=== PATIENT | female | born 1960 | race African-American/Black ===

== ENCOUNTER 2018-10-27 11:26 | Inpatient (IN) | payer OTHER ==
[2018-10-27 11:52] LABS: #Eosinphils 0.1 thou/uL (0.0-0.7); #Lymphocytes 1.9 thou/uL (1.20-3.40); #Monocytes 0.3 thou/uL (0.11-0.59); #Neutrophils 3.8 thou/uL (1.40-6.50); %Basophils 0.1 % (0.0-1.0); %Eosinophils 1.7 % (0.0-10.0); %Lymphocytes 31.4 % (21.0-51.0); %Monocytes 5.4 % (0.0-10.0); %Neutrophils 61.3 % (42.0-75.0); Hemoglobin 13.7 g/dL (12.0-16.0); Mean Corpuscular HGB CONC 31.7 g/dL (32.0-36.0); Mean Corpuscular Volume 88.4 fL (78.0-98.0); Mean Platelet Volume 8.4 fL (7.4-10.4); Platelet Count 187 thou/uL (130-400); RBC Distribution Width 12.2 % (11.5-14.5); White Blood Cell (WBC) Count 6.2 thou/uL (4.8-10.8)
[2018-10-27 11:58] LABS: Prothrombin Time 13.7 SEC (12.0-14.7)
--- NOTE | 2018-10-27 12:30 | RAD ---
PORTABLE CHEST: Date: 10/27/18 HISTORY: Mental status change. FINDINGS: Lung arechiga are clear. Heart and mediastinum appear normal. Vasculature normal. IMPRESSION: No acute abnormality. POS: [facility]
[2018-10-27 12:49] LABS: ALT (SGPT) 12 U/L (8-55); AST (SGOT) 14 U/L (5-34); Albumin 3.9 g/dL (3.5-5.0); Alkaline Phosphatase 64 U/L (40-150); Anion Gap 14 mmol/L (10-20); BUN (Urea Nitrogen) 14 mg/dL (9.8-20.1); Bilirubin, Total 0.7 mg/dL (0.2-1.2); CK (CPK) 148 U/L (29-168); Calc. Creatinine Clearance 0 mL/min (70-130); Calcium 9.6 mg/dL (7.8-10.44); Carbon Dioxide 27 mmol/L (22-29); Chloride 103 mmol/L (98-107); Estimated GFR-MDRD 70; Globulin 2.3 g/dL (2.4-3.5); Glucose 185 mg/dL (70-105); Potassium 4.5 mmol/L (3.5-5.1); Protein, Total 6.2 g/dL (6.0-8.3); Sodium 139 mmol/L (136-145)
[2018-10-27] MEDS ORDERED: Gadobenate Dimeglumine 529 MG/1 ML (20ML VIAL) ONE (13:10)
[2018-10-27 13:23] LABS: Bilirubin Negative (Negative); Blood, Urine Negative (Negative); Clarity CLEAR (Clear); Glucose, Urine (Dipstick) 100 mg/dL (Negative); Leukocyte Small (Negative); Nitrite Positive (Negative); Protein, Urine (Dipstick) Negative (Neg-Trace); Specific Gravity, Urine 1.021 (1.002-1.036); Urobilinogen 0.2 mg/dL (0.2-1.0)
[2018-10-27 13:25] LABS: Bacteria/HPF 4+ HPF (None Seen); Hyaline Casts/LPF 0-3 HYALINE CAST LPF (0-3 Hyaline); Pathc Cast-AUWi Flag 0.27 (0-2.49); RBC/HPF 0-3 HPF (0-3); Squamous Epithelial 0-3 HPF (0-3)
--- NOTE | 2018-10-27 14:07 | CT ---
CT HEAD WITHOUT CONTRAST: Date: 10/27/18 Multiple axial tomograms obtained through the head without IV enhancement. INDICATION: Difficulty speaking. There are no comparison studies. FINDINGS: Encephalomalacia in the right frontal lobe near the parasylvian region indicates an old cortical infa rct with mild encephalomalacia. There is abnormal cortical lucency in the left frontal lobe more superiorly, which suggests an old le ft frontal lobe infarct. Focal volume loss in the left occipital lobe also suggests an old focal left occipital cortical infar ct. There are chronic ischemic changes. No hemorrhage or mass effect. IMPRESSION: Chronic ischemic white matter changes and numerous areas of old cortical infarcts involving both cere bral hemispheres. Given the new neurologic finding of speech difficulty, recommend MRI of brain to as sess for restricted diffusion. Findings discussed with Dr. Enrique. CODE CR. POS: [facility]
[2018-10-27] MEDS ORDERED: Aspirin Chewable 81 MG TAB ONE (15:30)
--- NOTE | 2018-10-27 15:34 | PDOC.FPRHP ---
- History of Present Illness Chief Complaint: difficulty with speech History of Present Illness: 58 yo F with PMH HTN, DM2, HLD presents for apraxia that started 3 days ago and has not been improving. 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 She denies symptoms of headache, new visual/ hearing changes, fever, or dysphagia. Denies CP, palpitations, SOB or wheezing. In the ED, she had a CT positive for stroke. MRI showed Acute CVA in left front- parietal region anterior to central sulcus. - Allergies/Adverse Reactions Allergies Allergy/AdvReac Type Severity Reaction Status Date / Time No Known Allergies Allergy Verified 10/27/18 19:56 - History PMHx: DM, severe bilateral non proliferative diabetic retinopathy, HTN, HLD, knee OA, bilateral carpal tunnel PSHx: Hysterectomy, eye surgeries, lumpectomy FHx: Mother- cervical cancer Dad- doesn't know hx Social: No smoking, social alcohol use, no drug use allergies: NKDA - Review of Systems General: denies: fever/chills, weight/appetite/sleep changes Eyes: reports: vision changes (chronic). denies: eye pain ENT: denies: nasal congestion, rhinorrhea Respiratory: denies: cough, congestion, shortness of breath Cardiovascular: denies: chest pain, palpitation, paroxysmal nocturnal dyspnea, orthopnea Gastrointestinal: denies: nausea, vomiting, diarrhea, constipation, abdominal pain, GI bleeding Genitourinary: reports: polyuria. denies: dysuria Skin: denies: rashes, lesions Musculoskeletal: denies: pain, tenderness, arthritis/arthralgias Neurological: reports: other (see HPI). denies: numbness, syncope, seizure, weakness Psychological: denies: anxiety, depression - Vital signs BP: 116/97 HR: 94 RR: 16 Tmax: Pox: 98% on RA Wt: 89.8 kg - Physical Exam Constitutional: NAD, awake, alert and oriented, well developed HEENT: normocephalic and atraumatic, PERRLA, EOMI, conjunctiva clear, oropharynx clear, other (MM dry) Neck: supple, no LAD Heart: RRR, normal S1/S2, no murmurs/rubs/gallops Lungs: CTAB, no respiratory distress, good air movement, no rales/rhonchi, no wheezing Abdomen: soft, non-tender, bowel sounds present Musculoskeletal: normal structure, normal tone Neurological: CN II-XII intact, normal sensation, DTRs 2+ -Neurological: +dysarthria, no slurring of speech Skin: no rash/lesions, good turgor, capillary refill <2 seconds Heme/Lymphatic: no unusual bruising or bleeding Psychiatric: normal mood and affect, good judgment and insight, intact recent and remote memory FMR H&P: Results - Labs Result Diagrams: 10/27/18 11:38 10/27/18 11:38 Lab results: WBC 6.2 thou/uL (4.8-10.8) 10/27/18 11:38 Hgb 13.7 g/dL (12.0-16.0) 10/27/18 11:38 Hct 43.3 % (36.0-47.0) 10/27/18 11:38 MCV 88.4 fL (78.0-98.0) 10/27/18 11:38 Plt Count 187 thou/uL (130-400) 10/27/18 11:38 Neutrophils % 61.3 % (42.0-75.0) 10/27/18 11:38 Sodium 139 mmol/L (136-145) 10/27/18 11:38 Potassium 4.5 mmol/L (3.5-5.1) 10/27/18 11:38 Chloride 103 mmol/L (98-107) 10/27/18 11:38 Carbon Dioxide 27 mmol/L (22-29) 10/27/18 11:38 BUN 14 mg/dL (9.8-20.1) 10/27/18 11:38 Creatinine 0.99 mg/dL (0.6-1.1) 10/27/18 11:38 Glucose 185 mg/dL (70-105) H 10/27/18 11:38 Calcium 9.6 mg/dL (7.8-10.44) 10/27/18 11:38 Total Bilirubin 0.7 mg/dL (0.2-1.2) 10/27/18 11:38 AST 14 U/L (5-34) 10/27/18 11:38 ALT 12 U/L (8-55) 10/27/18 11:38 Alkaline Phosphatase 64 U/L (40-150) 10/27/18 11:38 Creatine Kinase 148 U/L (29-168) 10/27/18 11:38 Serum Total Protein 6.2 g/dL (6.0-8.3) 10/27/18 11:38 Albumin 3.9 g/dL (3.5-5.0) 10/27/18 11:38 Urine Ketones Negative mg/dL (Negative) 10/27/18 13:10 Urine Blood Negative (Negative) 10/27/18 13:10 Urine Nitrite Positive (Negative) H 10/27/18 13:10 Ur Leukocyte Esterase Small (Negative) H 10/27/18 13:10 Urine RBC 0-3 HPF (0-3) 10/27/18 13:10 Urine WBC 4-6 HPF (0-3) H 10/27/18 13:10 Ur Squamous Epith Cells 0-3 HPF (0-3) 10/27/18 13:10 Urine Bacteria 4+ HPF (None Seen) H 10/27/18 13:10 - EKG Interpretation EKG: NSR - Radiology Interpretation CT scan - head Status: image reviewed by me, report reviewed by me Additional comment: chronic ischemic white matter changes and numerous areas of old cortical infarcts involving both cerebral hemispheres MRI - head Status: image reviewed by me, report reviewed by me Additional comment: MRI Brain showed: Acute CVA left fronto-parietal region anterior to central sulcus; old CVA rt posterior frontal lobe and rt occipital lobe Chest x-ray Status: image reviewed by me, report reviewed by me Additional comment: no acute abnormality FMR H&P: A/P - Problem List (1) Acute CVA (cerebrovascular accident) Current Visit: Yes Status: Acute Code(s): I63.9 - CEREBRAL INFARCTION, UNSPECIFIED (2) Dysarthria Current Visit: Yes Status: Acute Code(s): R47.1 - DYSARTHRIA AND ANARTHRIA (3) DM2 (diabetes mellitus, type 2) Current Visit: Yes Status: Chronic (4) HTN (hypertension) Current Visit: Yes Status: Chronic Code(s): I10 - ESSENTIAL (PRIMARY) HYPERTENSION (5) HLD (hyperlipidemia) Current Visit: Yes Status: Chronic Code(s): E78.5 - HYPERLIPIDEMIA, UNSPECIFIED (6) Osteoarthritis, knee Current Visit: Yes Status: Chronic Code(s): M17.10 - UNILATERAL PRIMARY OSTEOARTHRITIS, UNSPECIFIED KNEE (7) Carpal tunnel syndrome on both sides Current Visit: Yes Status: Chronic Code(s): G56.03 - CARPAL TUNNEL SYNDROME , BILATERAL UPPER LIMBS - Plan Acute CVA - Dysarthria, sx started 3 days prior and have not improved; no other symptoms - EKG NSR - CT head showed multiple strokes - MRI Brain showed: Acute CVA left fronto-parietal region anterior to central sulcus; old CVA rt posterior frontal lobe and rt occipital lobe - Head/Neck CTA pending - Echo pending - TSH AM - FLP in AM - NPO until bedside swallow, then CC, HH - continue Statin and aspirin 325 - Neuro consult in AM Concern for UTI - U cx pending (clean catch), asymptomatic at this time - Received nitrofurantoin in ED - Hold Abx pending cx results DM2 - Continue home medications - Hypoglycemia protocol, SSI Diabetic retinopathy -Patient has poor vision, history of multiple eye surgeries HTN - Continue home lisinopril HLD - Continue statin Knee OA Bilateral Carpal Tunnel - Reports no symptoms currently Dispo: Admit to stroke inp Diet: HH, CC DVT ppx: lovenox Gi ppx: Tums PCP: Daina FMR H&P: Upper Level - Pertinent history 58 yr old female with PMH of DM, HTN, HLD who presents with speech difficulty with onset 3 days ago which has not improved. It came on with some confusion. Knows what she wants to say but can't get it out. Memory is intact. Speech not slurred. No weakness or numbness with this. Has not really improved since onset 3 days ago. Had episode of diarrhea yesterday, none today. - Pertinent findings Gen: NAD, well appearing, and appropriately dressed Heart: RRR, no M/R/G Lungs: CTAB, no wheezes, rhales, rhonchi Neuro: CN 2-12 intact, apraxia of speech, normal heel to schmidt, normal finger to nose. Brain MRI: new area of stroke in Left Frontoparietal region anterior to central sulcus, multiple right sided multivascular distribution of stroke which are old. left occipital area of stroke. 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 Pertinent changes/additions are listed here. 58 yr old female with PMH of DM, HTN, HLD with subacute CVA of left frontoparietal region anterior to central sulcus subacute CVA -findings on MRI c/w recent new stroke and consistent PE findings. -consult neurology -given CVA while on ASA, may consider dual antiplatelet therapy for the short term, appreciate neuro recs -check FLP, although she is on high-intensity statin already -Given her symptoms are 72 hours in duration, no further indication for permissive HTN DM -A1C 7.0 in 07/2019 -recheck in AM -continue metformin, glipizide -cont lisinopril HTN -cont home meds PCP: Claudia Lama MD Code Status: Full code DVT ppx: lovenox dispo: likely in 2 days, likely home Addendum - Attending - Attending Attestation Date/Time: 10/27/182109 I personally evaluated the patient and discussed the management with Dr. Mendoza and team. I agree with and repeated the History, Examination, Assessment and Plan documented above with any addition or exceptions noted below. Minimal dysarthria. Outside of window. No other symptoms. No word finding difficulty or aphasia. Likely change from ASA but await neuro input. Continue statin permissive htn. Risk factor management.
--- NOTE | 2018-10-27 15:43 | MRI ---
PRE AND POSTCONTRAST ENHANCED MRI OF THE BRAIN: Date: 10/27/18 COMPARISON: Previous CT brain from 10/27/18. HISTORY: 58-year-old female with history of CVA. TECHNIQUE: Multiplanar, multisequence pre and postcontrast enhanced MRI of brain obtained. FINDINGS: Images demonstrate old area of stroke in the right posterior frontal lobe, right mid temporal lobe, a nd right posterior temporal lobe. There is also old area of stroke in the left occipital region. There is an area of acute stroke with luxury perfusion and contrast enhancement of the rodriguez-white josué ction with T2 increased signal and diffusion restriction in the left frontoparietal region anterior t o the central sulcus. This is compatible with motor cortex area of acute stroke. IMPRESSION: 1. Multiple right-sided multivascular distribution areas of strokes, which are old. 2. Old left occipital area of stroke. 3. Left MCA distribution area of subacute stroke. POS: [facility]
[2018-10-27] MEDS: Nitrofurantoin Macrocrystal 50 MG CAP PO SCH ×2 (18:26→18:27)
[2018-10-27] MEDS ORDERED: Calcium Carbonate 500 MG ChewTAB PO PRN (18:39)
[2018-10-27] MEDS ORDERED: HumaLOG 300 UNITS/3 ML VIAL SC PRN (19:19)
[2018-10-27] MEDS ORDERED: Dextrose 50% Abboject 50 ML SYRINGE SLOW IVP PRN (19:19)
[2018-10-27] MEDS ORDERED: Dextrose 5% in Water 1,000 ML IV PRN (19:19)
[2018-10-27] MEDS ORDERED: Enoxaparin Sodium 40 MG/0.4 ML SYRINGE SC SCH (19:30)
[2018-10-27 19:49] VITALS: BMI 31.4
[2018-10-27] MEDS ORDERED: SYSTANE GEL EYE DROP 10 ML 10 GM BOT EA EYE PRN (20:45)
[2018-10-27] MEDS: Atorvastatin Calcium 40 MG TAB PO SCH (21:55)
--- NOTE | 2018-10-28 05:38 | PDOC.FM ---
- Subjective Subjective: Pt has no pain this AM. States her ability to talk has not improved. Answered all questions. - Objective Vital Signs & Weight: Vital Signs (12 hours) Temp Pulse Resp BP Pulse Ox 10/28/18 04:00 97.4 F L 75 16 132/62 99 10/28/18 00:00 98.0 F 87 16 119/65 98 10/27/18 20:15 97 10/27/18 20:00 98.0 F 86 16 134/62 97 10/27/18 17:57 99.1 F 88 18 132/83 99 Weight Weight 88.496 kg Result Diagrams: 10/27/18 11:38 10/27/18 11:38 Phys Exam - Physical Examination Constitutional: NAD HEENT: PERRLA, moist MMs Respiratory: no wheezing, clear to auscultation bilateral Cardiovascular: RRR, no significant murmur Gastrointestinal: soft, non-tender, no distention, positive bowel sounds Musculoskeletal: no edema, pulses present Neurological: non-focal, moves all 4 limbs apraxia Psychiatric: normal affect Skin: normal turgor, cap refill <2 seconds Dx/Plan (1) Acute CVA (cerebrovascular accident) Code(s): I63.9 - CEREBRAL INFARCTION, UNSPECIFIED Status: Acute (2) Dysarthria Code(s): R47.1 - DYSARTHRIA AND ANARTHRIA Status: Acute (3) DM2 (diabetes mellitus, type 2) Status: Chronic (4) HTN (hypertension) Code(s): I10 - ESSENTIAL (PRIMARY) HYPERTENSION Status: Chronic (5) HLD (hyperlipidemia) Code(s): E78.5 - HYPERLIPIDEMIA, UNSPECIFIED Status: Chronic (6) Osteoarthritis, knee Code(s): M17.10 - UNILATERAL PRIMARY OSTEOARTHRITIS, UNSPECIFIED KNEE Status: Chronic (7) Carpal tunnel syndrome on both sides Code(s): G56.03 - CARPAL TUNNEL SYNDROME, BILATERAL UPPER LIMBS Status: Chronic - Plan Plan: Acute CVA - Dysarthria, sx started 3 days prior and have not improved; no other symptoms - EKG NSR - CT head showed multiple strokes - MRI Brain showed: Acute CVA left fronto-parietal region anterior to central sulcus; old CVA rt posterior frontal lobe and rt occipital lobe - Head/Neck CTA pending - Echo pending - TSH -pending - FLP-pending - NPO until bedside swallow, then CC, HH - continue Statin and aspirin 325 - Neuro consult this AM Concern for [place] prolongation - Not seen on prior EKG, repeat EKG this AM Concern for UTI - U cx pending (clean catch), asymptomatic at this time - Received nitrofurantoin in ED - Hold Abx pending cx results DM2 - Continue home medications - Hypoglycemia protocol, SSI Diabetic retinopathy -Patient has poor vision, history of multiple eye surgeries HTN - Continue home lisinopril HLD - Continue statin Knee OA Bilateral Carpal Tunnel - Reports no symptoms currently Dispo: LOS >2 midnights Diet: HH, CC DVT ppx: lovenox Gi ppx: Tums PCP: Daina Addendum - Attending - Attending Attestation Date/Time: 10/28/18 [id number] I personally evaluated the patient and discussed the management with Dr. Mendoza. I agree with the History, Examination, Assessment and Plan documented above with any addition or exceptions noted below. Patient here for subacute CVA in the L MCA distribution. Continue BP mgmt and chronic disease mgmt. Add Plavix to ASA and consult Neurology. 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 Work to get risk factors under control and dispo pending therapy results.
[2018-10-28 06:24] LABS: Cardiac Risk 2.9 (Less than 4.5)
[2018-10-28] MEDS ORDERED: Iopamidol 370 76% 100 ML VIAL ONE (08:01)
[2018-10-28] MEDS ORDERED: Lisinopril 20 MG TAB PO SCH (09:00)
[2018-10-28] MEDS ORDERED: Non-Formulary Item 1 EACH (Lisinopril [Lisinopril] 1 TAB) PO SCH (09:00)
[2018-10-28] MEDS ORDERED: Aspirin 325 mg Enteric Coated Tablet PO SCH (09:00)
[2018-10-28] MEDS: Enoxaparin Sodium 40 MG/0.4 ML SYRINGE SC SCH (09:15)
[2018-10-28] MEDS: metFORMIN XR 500 MG TAB PO SCH ×2 (09:16→17:15)
[2018-10-28] MEDS: Fluticasone Propionate Nasal Spray 16 gm Bottle NASAL SCH (09:16)
--- NOTE | 2018-10-28 09:37 | CT ---
CTA HEAD WITH AND WITHOUT CONTRAST: CTA NECK WITH AND WITHOUT CONTRAST: INDICATIONS: CVA. COMPARISON: Yesterday's CT head without contrast. MRI reveals subacute infarct in the left parietal lobe. Other old cortical infarcts are described on MRI brain. TECHNIQUE: Multiple axial tomograms were obtained through the head without IV enhancement. This was followed by CT angio head with IV contrast, following angio protocol, with multiplanar reconstruction and 3D pos t processing. Multiple axial tomograms were obtained through the neck, following angio protocol, with multiplanar r econstruction and 3D post processing. FINDINGS: CTA HEAD: Cortical edema in the left parietal lobe, which is consistent with the area of acute/subac mi'kmaq infarct seen on MRI. There are other areas of cortical lucency, consistent with old cortical inf arcts, which are better delineated on MRI exam. No hemorrhage. No significant mass effect. No inte rval change from yesterday's noncontrast CT. CT angio head shows the intracranial internal carotid arteries are patent and symmetric. The anterio r cerebral arteries and the middle cerebral arteries are patent and symmetric. The M1 branches are p atent with no evidence of stenosis or occlusion. The proximal M2 branches on the left appear patent. There appears to be some decrease in the opercular and M3 branches on the left, which may correspon d to a left parietal lobe infarct; however, no major vessel occlusion is apparent. The basilar artery is patent. The posterior cerebral arteries appear patent and symmetric. CTA NECK: No evidence of stenosis or atherosclerotic change seen at the origin of the arch vessels. Both common carotids are unremarkable. Bilateral carotid bulbs and bilateral extracranial internal carotid arteries are patent and symmetric. No stenosis. The vertebral arteries are patent and symmetric. The soft tissues are unremarkable. IMPRESSION: 1. No proximal cerebral artery stenosis or occlusion identified. 2. Unremarkable CTA neck. No evidence of carotid stenosis. POS: [facility]
[2018-10-28] MEDS: Clopidogrel Bisulfate 75 MG TAB PO SCH (10:14)
[2018-10-28] MEDS: Lisinopril 20 MG TAB PO SCH (10:14)
[2018-10-28 12:47] LABS: Hemoglobin A1c 6.9 % (4.0-6.0)
[2018-10-28] MEDS: Atorvastatin Calcium 40 MG TAB PO SCH (20:58)
[2018-10-29 05:48] LABS: PTT 25.2 SEC (22.9-36.1)
[2018-10-29 05:49] LABS: Prothrombin Time 13.7 SEC (12.0-14.7)
[2018-10-29 05:56] LABS: D-Dimer Test Less than 0.27 *mcg/mL (0.27-0.43)
--- NOTE | 2018-10-29 06:12 | PDOC.FM ---
- Subjective Subjective: Patient reports she is doing well. Saw speech therapy, has some exercises to do at home. - Objective Vital Signs & Weight: Vital Signs (12 hours) Temp Pulse Resp BP Pulse Ox 10/29/18 03:55 97.7 F 76 18 122/59 L 100 10/29/18 00:00 98.0 F 86 18 140/67 98 10/28/18 20:00 98.0 F 89 18 132/69 97 Weight Weight 88.496 kg I&O: 10/27/18 10/28/18 10/29/18 06:59 06:59 06:59 Intake Total 1680 Balance 1680 Result Diagrams: 10/27/18 11:38 10/27/18 11:38 Phys Exam - Physical Examination Constitutional: NAD Respiratory: no wheezing, clear to auscultation bilateral Cardiovascular: RRR, no significant murmur Gastrointestinal: soft, non-tender, no distention, positive bowel sounds Musculoskeletal: no edema, pulses present Neurological: non-focal, normal sensation, moves all 4 limbs Pauses before speaking some words, stutters on occasion Psychiatric: normal affect, A&O x 3 Skin: no rash, normal turgor, cap refill <2 seconds Dx/Plan (1) Acute CVA (cerebrovascular accident) Code(s): I63.9 - CEREBRAL INFARCTION, UNSPECIFIED Status: Acute (2) Dysarthria Code(s): R47.1 - DYSARTHRIA AND ANARTHRIA Status: Acute (3) DM2 (diabetes mellitus, type 2) Status: Chronic (4) HTN (hypertension) Code(s): I10 - ESSENTIAL (PRIMARY) HYPERTENSION Status: Chronic (5) HLD (hyperlipidemia) Code(s): E78.5 - HYPERLIPIDEMIA, UNSPECIFIED Status: Chronic (6) Osteoarthritis, knee Code(s): M17.10 - UNILATERAL PRIMARY OSTEOARTHRITIS, UNSPECIFIED KNEE Status: Chronic (7) Carpal tunnel syndrome on both sides Code(s): G56.03 - CARPAL TUNNEL SYNDROME, BILATERAL UPPER LIMBS Status: Chronic - Plan Plan: Acute CVA - Aphasia, sx started 3 days prior to admission and have not improved; no other symptoms - EKG NSR - CT head showed multiple strokes - MRI Brain showed: Acute CVA left fronto-parietal region anterior to central sulcus; old CVA rt posterior frontal lobe and rt occipital lobe - Head/Neck CTA negative - Echo pending - TSH -normal - FLP on statin shows ASCVD 7.1%, continue high intensity statin - continue Statin and aspirin 81 mg and plavix - Neuro consulted, Dr. Riley, 10/28. Recommendations appreciated Concern for [place] prolongation - Not seen on prior EKG, repeat EKG showed no prolonged QT Concern for UTI - U cx pending (clean catch), asymptomatic at this time - Received nitrofurantoin in ED - Cx <100,000 DM2 - Continue home medications - Hypoglycemia protocol, SSI - A1C 6.9 Diabetic retinopathy -Patient has poor vision, history of multiple eye surgeries HTN - Continue home lisinopril HLD - Continue statin Knee OA Bilateral Carpal Tunnel - Reports no symptoms currently Dispo: LOS >2 midnights Diet: HH, CC DVT ppx: lovenox Gi ppx: Tums PCP: Daina Addendum - Attending - Attending Attestation Date/Time: 10/29/18 1113 I personally evaluated the patient and discussed the management with Dr. Mendoza. I agree with the History, Examination, Assessment and Plan documented above with any addition or exceptions noted below. Patient doing well today. Continues to have some issues with word finding associated with her subacute CVA, but improved. She will continue on ASA and Plavix therapy. No need for intense therapy per PT, and so once Neurology has evaluated patient, likely discharge home later today.
[2018-10-29] MEDS: metFORMIN XR 500 MG TAB PO SCH ×2 (09:01→11:20)
[2018-10-29] MEDS: Enoxaparin Sodium 40 MG/0.4 ML SYRINGE SC SCH (09:04)
[2018-10-29] MEDS: Lisinopril 20 MG TAB PO SCH (09:04)
[2018-10-29] MEDS: Aspirin 81 mg Enteric Coated Tablet PO SCH (09:05)
[2018-10-29] MEDS: Fluticasone Propionate Nasal Spray 16 gm Bottle NASAL SCH (09:05)
[2018-10-29] MEDS: Clopidogrel Bisulfate 75 MG TAB PO SCH (09:05)
--- NOTE | 2018-10-29 09:33 | EKG ---
Test Reason : Blood Pressure : / mmHG Vent. Rate : 089 BPM Atrial Rate : 089 BPM P-R Int : 176 ms QRS Dur : 088 ms QT Int : 362 ms P-R-T Axes : 070 -03 032 degrees QTc Int : 440 ms Normal sinus rhythm Normal ECG When compared with ECG of 27-OCT-2018 11:58, (Unconfirmed) No significant change was found Confirmed by DR. Chito CARTER ([id number]) on 10/29/2018 9:32:59 AM Referred By: PUSHPA CROOK *r Confirmed By:DR. Chito CARTER
[2018-10-29] MEDS: Atorvastatin Calcium 40 MG TAB PO SCH (20:05)
[2018-10-29] MEDS ORDERED: Polyethylene Glycol 3350 17 GM Packet PO SCH (21:15)
--- NOTE | 2018-10-29 22:18 | CON ---
DATE OF CONSULTATION: 10/29/2018 CONSULTING PHYSICIAN: Hospitalist Services. IMPRESSION: 1. Acute left middle cerebral artery stroke. 2. Old left occipital stroke. 3. Old right deep parietal infarcts. 4. Diabetes. 5. Aspirin failure. PLAN: 1. Add Plavix. 2. Review hypercoagulation panel when available. 3. Echocardiogram. HISTORY OF PRESENT ILLNESS: Ms. Olson is a 58-year-old black female with known history of diabetes. She presented with acute onset of some right-sided weakness and language difficulty. Her symptoms have improved a bit since admission. Her scan was reviewed and showed what is documented above. Her CT angiogram did not show any extracranial or intracranial large vessel stenosis. She has seen some steady improvement in her speech. She was previously taking aspirin and a statin. PAST MEDICAL HISTORY: Diabetes, hyperlipidemia, silent stroke. ALLERGIES: NONE. SOCIAL HISTORY: No tobacco or alcohol use. FAMILY HISTORY: Noncontributory. MEDICATIONS: Medication list was reviewed. REVIEW OF SYSTEMS: A 10-system review of systems is otherwise only notable for blurred vision. PHYSICAL EXAMINATION: GENERAL: She is a healthy-appearing middle-aged woman, in no acute distress. VITAL SIGNS: Blood pressure 125/60, pulse 85, respirations 16, temperature 98.7. HEENT: Pupils are equal. Conjunctivae are clear. Oropharynx is clear. NECK: Supple, no lymphadenopathy. EXTREMITIES: No cyanosis, clubbing, or edema. NEUROLOGIC: She is alert and appropriate. Her speech is clear with some difficulty with word finding sporadically during the conversation. Cranial nerves are intact. Motor exam shows a fix on arm roll testing on the right side. Fine motor control is mildly impaired on the right. No tremor or dysmetria is present. She can walk independently. No abnormal movements are seen. LABORATORY DATA: EKG shows a normal sinus rhythm. SUMMARY: This is a middle-aged woman with acute stroke despite aspirin and statin. I would go ahead and advance her to Plavix unless her coagulation panel shows evidence of a coagulopathy that might require anticoagulation. I would be happy to follow up with her in the office. Job ID: [id number]
--- NOTE | 2018-10-30 06:43 | PDOC.FM ---
- Subjective Subjective: Patient feels well this AM. Saw neurology yesterday. COLIN. - Objective Vital Signs & Weight: Vital Signs (12 hours) Temp Pulse Resp BP Pulse Ox 10/30/18 04:00 98.9 F 74 16 121/59 L 98 10/30/18 00:00 97.8 F 81 16 137/63 99 10/29/18 20:00 99 10/29/18 19:49 99.3 F 83 16 120/64 98 Weight Weight 88.496 kg I&O: 10/28/18 10/29/18 10/30/18 06:59 06:59 06:59 Intake Total 1680 Balance 1680 Result Diagrams: 10/27/18 11:38 10/27/18 11:38 Phys Exam - Physical Examination Constitutional: NAD HEENT: PERRLA, moist MMs Neck: no nodes, supple Respiratory: no wheezing, clear to auscultation bilateral Cardiovascular: RRR, no significant murmur Gastrointestinal: soft, non-tender, no distention, positive bowel sounds Musculoskeletal: no edema, pulses present Neurological: normal sensation, moves all 4 limbs expressive Aphasia Psychiatric: normal affect, A&O x 3 Skin: normal turgor, cap refill <2 seconds Dx/Plan (1) Acute CVA (cerebrovascular accident) Code(s): I63.9 - CEREBRAL INFARCTION, UNSPECIFIED Status: Acute (2) Dysarthria Code(s): R47.1 - DYSARTHRIA AND ANARTHRIA Status: Acute (3) DM2 (diabetes mellitus, type 2) Status: Chronic (4) HTN (hypertension) Code(s): I10 - ESSENTIAL (PRIMARY) HYPERTENSION Status: Chronic (5) HLD (hyperlipidemia) Code(s): E78.5 - HYPERLIPIDEMIA, UNSPECIFIED Status: Chronic (6) Osteoarthritis, knee Code(s): M17.10 - UNILATERAL PRIMARY OSTEOARTHRITIS, UNSPECIFIED KNEE Status: Chronic (7) Carpal tunnel syndrome on both sides Code(s): G56.03 - CARPAL TUNNEL SYNDROME, BILATERAL UPPER LIMBS Status: Chronic - Plan Plan: Acute CVA - Aphasia, sx started 3 days prior to admission and have not improved; no other symptoms - EKG NSR - CT head showed multiple strokes - MRI Brain showed: Acute CVA left fronto-parietal region anterior to central sulcus; old CVA rt posterior frontal lobe and rt occipital lobe - Head/Neck CTA negative - Echo: EF 60-65%, trace mitral regurgitation, mild tricuspid regurgitation, no PFO or ASD, no intracardiac thrombi or masses, structurally normal aortic valve. - TSH -normal - FLP on statin shows ASCVD 7.1%, continue high intensity statin - continue Statin and aspirin 81 mg and plavix - Neuro consulted, Dr. Riley, 10/28. Recommendations appreciated -Start plavix if normal coag panel Concern for WI prolongation - Not seen on prior EKG, repeat EKG showed no prolonged QT Concern for UTI - U cx pending (clean catch), asymptomatic at this time - Received nitrofurantoin in ED - Cx <100,000 DM2 - Continue home medications - Hypoglycemia protocol, SSI - A1C 6.9 Diabetic retinopathy -Patient has poor vision, history of multiple eye surgeries HTN - Continue home lisinopril HLD - Continue statin Knee OA Bilateral Carpal Tunnel - Reports no symptoms currently Dispo: Discharge today Diet: HH, CC DVT ppx: lovenox Gi ppx: Tums PCP: Daina Addendum - Attending - Attending Attestation Date/Time: 10/30/18 0901 I personally evaluated the patient and discussed the management with Dr. Mendoza. I agree with the History, Examination, Assessment and Plan documented above with any addition or exceptions noted below. Patient doing well this AM and able to speak more clearly. Neurology has evaluated and she is stable for discharge this morning with follow up outpatient with PCP and Neurology. Continue ASA, Statin, and Plavix.
[2018-10-30 07:30] VITALS: BP 133/61; TEMP 98.1
[2018-10-30] MEDS: metFORMIN XR 500 MG TAB PO SCH (08:51)
[2018-10-30] MEDS: Lisinopril 20 MG TAB PO SCH (08:52)
[2018-10-30] MEDS: Aspirin 81 mg Enteric Coated Tablet PO SCH (08:52)
[2018-10-30] MEDS: Clopidogrel Bisulfate 75 MG TAB PO SCH (08:52)
[2018-10-30] MEDS: Fluticasone Propionate Nasal Spray 16 gm Bottle NASAL SCH (08:54)
[2018-10-30] MEDS: Enoxaparin Sodium 40 MG/0.4 ML SYRINGE SC SCH (08:54)
[2018-10-30] MEDS ORDERED: Polyethylene Glycol 3350 17 GM Packet PO SCH (09:00)
[2018-10-30 17:02] LABS: HEX PHOS LA Tube 2 50.2 SEC; Hexagonal Phospholipid Neut 2.8 SEC (0-8.0); Protein C Activity 154 % (78-152)
[2018-10-30 17:03] LABS: Factor VIII Test 256.3 % ACTIVE (56-157)
[2018-10-30 17:06] LABS: Cardiolipin IgG Ab 0.6 GPL-U/mL (<10 Negative); Cardiolipin IgM Ab Less than 0.8 MPL-U/mL (<10 Negative); EliA APS New Method **** NEW METHOD ****
--- NOTE | 2018-10-31 07:20 | DIS ---
DATE OF ADMISSION: 10/27/2018 DATE OF DISCHARGE: 10/30/2018 RESIDENT: Sandra Mendoza MD ADMITTING ATTENDING: Arnaldo Neri MD. DISCHARGE ATTENDING: Arnaldo Neri MD. CONSULTS: Neurology, Dr. Riley, 10/28/2018. PROCEDURES: 1. Chest x-ray, 10/27/2018, no acute abnormality. 2. Brain CT, 10/27/2018, chronic ischemic white matter changes. Numerous areas of old cortical infarcts involving both cerebral hemispheres. 3. Brain MRI, 10/27/2018, multiple right-sided multi vascular distribution areas of strokes, which are old. 4. Old left occipital area stroke. 5. Left MCA distribution area of subacute stroke. 6. CT angiography, 10/28/2018, head and neck. No proximal cerebral artery stenosis or occlusion identified. Unremarkable CTA neck. No evidence of carotid stenosis. 7. Echocardiogram, 10/29/2018, no evidence of PFO or ASD. No intracardiac thrombi or masses noted. EF visually estimated at 60% to 65%. Normal right ventricular size and function. Left atrium is of normal size. Normal right atrial size. Trace mitral regurgitation is present. Structurally normal aortic valve. Mild tricuspid regurgitation. ADMIT DIAGNOSES: 1. Acute cerebrovascular accident with resulting aphasia. 2. Diabetes mellitus type 2. 3. Diabetic retinopathy. 4. Hypertension. 5. Hyperlipidemia. 6. Knee osteoarthritis. 7. Bilateral carpal tunnel syndrome. DISCHARGE MEDICATIONS: 1. Clopidogrel 75 mg p.o. daily. 2. Metformin 1000 mg p.o. b.i.d. 3. Glipizide 1 tab p.o. daily. 4. Fluticasone 1 spray nasal daily. 5. Lisinopril 40 mg p.o. daily. 6. Aspirin 81 mg daily. 7. Atorvastatin 80 mg p.o. at bedtime. 8. 2 drops each eye p.r.n. for dry eyes. DISCONTINUED MEDICATIONS: None. HISTORY OF PRESENT ILLNESS AND HOSPITAL COURSE: A 58-year-old female with past medical history of hypertension, type 2 diabetes mellitus, hyperlipidemia, presents for aphasia that started 3 days ago and has not been improving. 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 She states she knows that she wants to say, but has difficulty saying it. She denies symptoms of headache, visual or hearing changes, fever, dysphagia. Denies chest pain, palpitations, shortness of breath, or wheezing. In the ED, she had a CT that is positive for stroke. MRI showed acute CVA in the left frontoparietal region anterior to the central sulcus. This correlates with the Broca's aphasia. Head and neck CT was negative. Echo showed no thrombus or vegetation. TSH was normal. The patient was continued on aspirin and statin and started Plavix. Neuro was consulted. The patient was evaluated by speech and will follow up with outpatient occupational therapy. The patient had a positive UA that was asymptomatic. She received nitrofurantoin in the ED. Culture grew less than 100,000 organism and antibiotics were not continued. The patient's chronic medical conditions were treated with home medications. DISPOSITION: Stable. DISCHARGE INSTRUCTIONS: 1. Location: Home. 2. Diet: Heart healthy, diabetic diet, low-sodium diet. 3. Activity: As tolerated. 4. The patient will return to work on Sunday. She is given a note for her place of work. 5. Followup: Follow up with Dr. Claudia Lama within 7 days. The patient will also follow up with Dr. Riley as an outpatient as needed. Job ID: [id number]
== END 2018-10-30 11:42 | disposition home or self-care (01) | DRG 65 ==
LOC: ERS 11:26 → OBSVTOIN 16:35 → 2SE 16:35
PROVIDERS: ADMIT Student in an Organized Health Care Education/Training Program; ATTEND Student in an Organized Health Care Education/Training Program
DX: I63.9 Cerebral infarction, unspecified (principal); G81.91 Hemiplegia, unspecified affecting right dominant side; I63.512 Cerebral infarction due to unspecified occlusion or stenosis of left middle cerebral artery; R47.01 Aphasia; R47.1 Dysarthria and anarthria; I10 Essential (primary) hypertension; E11.319 Type 2 diabetes mellitus with unspecified diabetic retinopathy without macular edema; M17.10 Unilateral primary osteoarthritis, unspecified knee; Z90.710 Acquired absence of both cervix and uterus; G56.03 Carpal tunnel syndrome, bilateral upper limbs; Z79.82 Long term (current) use of aspirin; Z79.84 Long term (current) use of oral hypoglycemic drugs; Z79.51 Long term (current) use of inhaled steroids; E78.00 Pure hypercholesterolemia, unspecified
CPT/HCPCS: 36415; 36416; 70450; 70496; 70498; 70553; 71045; 80053; 80061; 81003; 81015; 81240; 81241; 82550; 83036; 83090; 84443; 84484; 85025; 85240; 85300; 85303; 85305; 85307; 85379; 85598; 85610; 85730; 86147; 87077; 87086; 87186; 93005; 93010; 93306; 94760; A9577; J1650; Q9967

== ENCOUNTER 2019-07-18 14:09 | Outpatient (CLI) | payer OTHER ==
--- NOTE | 2019-07-18 15:38 | ULT ---
FOCUSED ULTRASOUND OF THE LEFT BREAST AND LEFT AXILLA: 07/18/19 HISTORY: Palpable mass in the medial left breast. TECHNIQUE: Multiplanar rodriguez scale sonographic imaging of the area of palpable concern obtained. The left axilla was assessed as well. In the area of palpable concern within the medial left breast at the 10 o'clock position, approximate ly 7 cm from the nipple there is an irregular heterogeneous hypoechoic mass measuring up to approxima tely 4.5 x 2.7 x 2.0 cm. It demonstrates shadowing and is highly suggestive of malignancy. Focused ul trasound of the left axilla does demonstrate an enlarged left axillary lymph node with cortical thick ening which measures approximately 5 mm. This lymph node measures at least 1.1 cm transverse dimensio n and 3.2 cm craniocaudal dimension. IMPRESSION: BIRADS 5: Highly Suggestive of Malignancy - Appropriate Action Should Be Taken Requires biopsy or surgical treatment. Mildly enlarged left axillary lymph node may be metastatic in nature. Recommend further evaluation with ultrasound guided biopsy of the left breast mass and biopsy/fine n eedle aspiration of left axillary node. The patient was made aware of these findings and recommendation for biopsy in person by Dr. Steen at 3:15 p.m., 07/18/19. Dr. Dempsey made aware via phone on the afternoon of 07/18/2019 as well. Code T POS: LILIAN
--- NOTE | 2019-07-18 16:28 | MMO ---
Bilateral MAMMO Bilat Diag [facility]+ILENE. CLINICAL HISTORY: Patient is 59 years old and is seen for diagnostic exam. The patient has no family history of breast cancer. The patient has no personal history of cancer. The patient has a history of right Excisional Biopsy in 1990 - benign. VIEWS: The views performed were: bilateral craniocaudal with tomosynthesis; bilateral mediolateral oblique with tomosynthesis; and bilateral mediolateral with tomosynthesis. FILMS COMPARED: The present examination has been compared to prior imaging studies performed at [facility] on 07/18/2019, and at [facility] on 02/24/2013, 04/27/2014 and 03/11/2015. This study has been interpreted with the assistance of computer-aided detection. MAMMOGRAM FINDINGS: There are scattered fibroglandular densities. There is an irregular mass measuring 4.3cm seen in the inner region of the left breast. There are mildly prominent nodes within the left axilla which could be malignant in nature. Dr. Dempsey made aware at the time of interpretation as was the patient. In the right breast, there are no suspicious masses, calcifications or areas of architectural distortion. IMPRESSION: MASS IN THE LEFT BREAST IS HIGHLY SUGGESTIVE OF MALIGNANCY. BIOPSY IS RECOMMENDED. THE RESULTS OF THIS EXAM WERE SENT TO THE PATIENT. ACR BI-RADS Category 5 - Highly suggestive of malignancy - appropriate action should be taken MAMMOGRAPHY NOTE: 1. A negative mammogram report should not delay a biopsy if a dominant of clinically suspicious mass is present. 2. Approximately 10% to 15% of breast cancers are not detected by mammography. 3. Adenosis and dense breasts may obscure an underlying neoplasm. Reported by: DURAN CORTEZ MD Electonically Signed: [id number]
== END 2019-07-18 14:10 | disposition home or self-care (01) ==
LOC: BICMAMMO 14:09
PROVIDERS: ATTEND Family Medicine
DX: N63.0 Unspecified lump in unspecified breast (principal); R59.0 Localized enlarged lymph nodes
CPT/HCPCS: 77066; G0279

== ENCOUNTER 2019-07-30 11:49 | Day surgery (SDC) | payer OTHER ==
[2019-07-29 16:58] VITALS: BMI 32.5
[2019-07-30 12:57] LABS: #Eosinphils 0.1 thou/uL (0.0-0.7); #Lymphocytes 1.5 thou/uL (1.20-3.40); #Monocytes 0.3 thou/uL (0.11-0.59); #Neutrophils 4.2 thou/uL (1.40-6.50); %Basophils 0.6 % (0.0-1.0); %Eosinophils 1.8 % (0.0-10.0); %Lymphocytes 24.6 % (21.0-51.0); %Monocytes 4.7 % (0.0-10.0); %Neutrophils 68.2 % (42.0-75.0); Hemoglobin 13.2 g/dL (12.0-16.0); Mean Corpuscular HGB CONC 33.2 g/dL (32.0-36.0); Mean Corpuscular Hemoglobin 29.6 pg (27.0-31.0); Mean Corpuscular Volume 89.3 fL (78.0-98.0); Mean Platelet Volume 7.8 fL (7.4-10.4); Platelet Count 213 thou/uL (130-400); Red Blood Cell (RBC) Count 4.47 mill/uL (4.20-5.40); White Blood Cell (WBC) Count 6.2 thou/uL (4.8-10.8)
[2019-07-30 13:19] LABS: Anion Gap 15 mmol/L (10-20); BUN (Urea Nitrogen) 14 mg/dL (9.8-20.1); Calc. Creatinine Clearance 79 mL/min (70-130); Calcium 10.2 mg/dL (7.8-10.44); Carbon Dioxide 23 mmol/L (22-29); Chloride 108 mmol/L (98-107); Estimated GFR-MDRD 61; Glucose 143 mg/dL (70-105); Potassium 4.1 mmol/L (3.5-5.1); Sodium 142 mmol/L (136-145)
[2019-07-30] MEDS ORDERED: Bupivacaine 0.25% HCL 30 ML VIAL ONE (13:55)
[2019-07-30] MEDS ORDERED: Lidocaine 2% w/Epinephrine 1:200K 20 ML VIAL ONE (13:55)
[2019-07-30] MEDS ORDERED: Fentanyl 100 MCG/2 ML VIAL ONE (14:12)
[2019-07-30] MEDS ORDERED: PROPOFOL 20 ML ONE (14:12)
--- NOTE | 2019-07-30 17:09 | RAD ---
XR Chest 1 View Portable HISTORY: Post Mediport placement COMPARISON: 10/27/2018 FINDINGS: The heart size is normal. The lungs are well expanded without focal areas of consolidation, pneumothorax or pleural effusions. A right sided Port-A-Cath has been placed with tip in the projection of the SVC. IMPRESSION: No radiographic evidence of acute cardiopulmonary process.
--- NOTE | 2019-07-30 17:34 | PDOC.OP ---
Operative Note - Operative Note Operative Note: PROCEDURE: Right internal jugular MediPort placement with ultrasound and fluoroscopic guidance DATE OF PROCEDURE: 07/30/2019 SURGEON: Juhi Carbajal M.D. PREOPERATIVE DIAGNOSIS: Locally advanced breast cancer POSTOPERATIVE DIAGNOSIS: Locally advanced breast cancer HISTORY: Patient has been diagnosed with locally advanced left breast lobular cancer. Chemotherapy has been recommended and a Mediport has been requested for this. OPERATIVE PROCEDURE IN DETAIL: After informed consent was obtained and appropriate preoperative antibiotics administered, the patient was taken to the operating room and placed in supine position and monitored anesthesia care was administered. The patient was then placed in Trendelenburg position and the patent compressible right internal jugular vein accessed easily on the first attempt under direct ultrasound guidance with excellent flow of dark venous non- pulsatile blood. A wire threaded easily and was confirmed to be in the compressible vein by ultrasound and with the tip in the superior vena cava by fluoroscopy. Additional local anesthesia was infused to the skin and subcutaneous tissues of the right neck and chest. A skin incision was made on the right chest and a subcutaneous pocket developed inferiorly. A Mediport was obtained and confirmed to fit in the subcutaneous pocket. This was secured inferiorly to the pectoralis fascia with a Prolene suture, which was clamped, but not tied. Mediport tubing was then tunneled from the chest to the right IJ access site subcutaneously. The dilator and sheath were then placed over the wire and the dilator and wire removed leaving the sheath in place. The clamped MediPort tubing was tunneled through the sheath, which was then split and removed leaving the MediPort tubing in place. The tubing was adjusted until the tip was confirmed by fluoroscopy to be in the superior vena cava just above the atrium. The tubing was clamped at the skin level and cut and the tubing secured to the port, which was then placed in the subcutaneous pocket. The previously placed suture was secured and two additional sutures were placed to fix the port in place within the pocket. The port was aspirated with the Marshall needle and had excellent flow of dark venous non-pulsatile blood and easily flushed without resistance. The subcutaneous tissues were closed with a running Monocryl suture, following which the skin was closed with a running subcuticular Monocryl suture. Dermabond dressings were placed. The course of the catheter was confirmed by fluoroscopy to be smooth with the tip appropriately located in the superior vena cava. The patient was taken back to recovery in good condition. Estimated blood loss was minimal. There were no complications. There were no specimens.
== END 2019-07-30 18:15 | disposition home or self-care (01) ==
LOC: SDC 11:49
PROVIDERS: ATTEND Surgery
DX: C50.919 Malignant neoplasm of unspecified site of unspecified female breast (principal); I10 Essential (primary) hypertension; E11.9 Type 2 diabetes mellitus without complications; Z79.82 Long term (current) use of aspirin; Z79.84 Long term (current) use of oral hypoglycemic drugs; Z79.899 Other long term (current) drug therapy
CPT/HCPCS: 71045; 80048; 85025; C1788; J0690; J1642; J2704; J3010; S0020

== ENCOUNTER 2020-01-08 06:52 | Outpatient (CLI) | payer OTHER ==
[2020-01-08 11:02] LABS: #Eosinphils 0.2 thou/uL (0.0-0.7); #Lymphocytes 1.4 thou/uL (1.20-3.40); #Monocytes 0.6 thou/uL (0.11-0.59); %Basophils 0.9 % (0.0-1.0); %Eosinophils 3.6 % (0.0-10.0); %Lymphocytes 26.3 % (21.0-51.0); %Monocytes 11.6 % (0.0-10.0); %Neutrophils 57.6 % (42.0-75.0); Hemoglobin 9.9 g/dL (12.0-16.0); Mean Corpuscular HGB CONC 32.2 g/dL (32.0-36.0); Mean Corpuscular Hemoglobin 32.5 pg (27.0-31.0); Mean Platelet Volume 8.4 fL (7.4-10.4); Platelet Count 261 thou/uL (130-400); RBC Distribution Width 15.6 % (11.5-14.5); Red Blood Cell (RBC) Count 3.04 mill/uL (4.20-5.40); White Blood Cell (WBC) Count 5.2 thou/uL (4.8-10.8)
[2020-01-08 11:21] LABS: Anion Gap 11 mmol/L (10-20); BUN (Urea Nitrogen) 14 mg/dL (9.8-20.1); Calc. Creatinine Clearance 0 mL/min (70-130); Calcium 9.4 mg/dL (7.8-10.44); Carbon Dioxide 26 mmol/L (22-29); Chloride 106 mmol/L (98-107); Estimated GFR-MDRD 68; Glucose 188 mg/dL (70-105); Potassium 4.4 mmol/L (3.5-5.1); Sodium 139 mmol/L (136-145)
[2020-01-08 17:36] LABS: SARS-CoV-2 MS2 Positive; SARS-CoV-2 N Gene Negative; SARS-CoV-2 S Gene Negative; SARS-CoV-2 orf1ab Negative
== END 2020-01-08 06:53 | disposition home or self-care (01) ==
LOC: LABBT 06:52
PROVIDERS: ATTEND Surgery
DX: Z01.818 Encounter for other preprocedural examination (principal); Z11.59 Encounter for screening for other viral diseases
CPT/HCPCS: 80048; 85025; 87635; 93005; 93010; U0003

== ENCOUNTER 2020-01-09 | Day surgery (SDC) | payer OTHER | END 2020-01-09 15:20 | disposition home or self-care (01) | PROC: 07B60ZX Excision of Left Axillary Lymphatic, Open Approach, Diagnostic (ICD-10-PCS; principal; 2020-01-09) | PROC: 0HBU0ZZ Excision of Left Breast, Open Approach (ICD-10-PCS; principal; 2020-01-09) | DX: C50.212 Malignant neoplasm of upper-inner quadrant of left female breast (principal); I10 Essential (primary) hypertension; E11.9 Type 2 diabetes mellitus without complications; Z17.0 Estrogen receptor positive status [ER+]; Z79.82 Long term (current) use of aspirin; Z79.84 Long term (current) use of oral hypoglycemic drugs; Z79.899 Other long term (current) drug therapy ==

== ENCOUNTER 2020-01-16 07:19 | Outpatient (CLI) | payer OTHER ==
[2020-01-17 16:49] LABS: SARS-CoV-2 MS2 Positive; SARS-CoV-2 N Gene Negative; SARS-CoV-2 S Gene Negative; SARS-CoV-2 orf1ab Negative
== END 2020-01-16 07:20 | disposition home or self-care (01) ==
LOC: LABBT 07:19
PROVIDERS: ATTEND Surgery
DX: Z01.812 Encounter for preprocedural laboratory examination (principal); Z11.59 Encounter for screening for other viral diseases; C50.919 Malignant neoplasm of unspecified site of unspecified female breast
CPT/HCPCS: 87635; U0003

== ENCOUNTER 2020-01-20 10:35 | Day surgery (SDC) | payer OTHER ==
[2020-01-16 14:45] VITALS: BMI 31.8
[~2020-01-20 10:35] MED LIST: Dexamethasone 20 MG/5 ML VIAL ONE; Lidocaine 1% PF 5 ML VIAL ONE; Ondansetron PF 4 MG/2 ML Vial ONE; PROPOFOL 200 MG/20 ML VIAL ONE
[2020-01-20] MEDS ORDERED: Ketorolac Tromethamine 30 MG/ML VIAL ONE (11:03)
[2020-01-20] MEDS ORDERED: Acetaminophen 500 MG TAB ONE (11:03)
[2020-01-20] MEDS ORDERED: Midazolam HCl 2 mg/2 ml Vial ONE (13:14)
[2020-01-20] MEDS ORDERED: Fentanyl 100 MCG/2 ML VIAL ONE (13:14)
[2020-01-20] MEDS ORDERED: Bupivacaine 0.25% HCL 30 ML VIAL ONE (13:35)
[2020-01-20] MEDS ORDERED: Lidocaine 1% w/Epinephrine 1:100K 20 ML VIAL ONE (13:35)
[2020-01-20] MEDS ORDERED: hydrALAZINE 20 MG/ML VIAL ONE (17:09)
--- NOTE | 2020-01-27 13:00 | PDOC.OP ---
Operative Note - Operative Note Operative Note: PROCEDURE: Left breast reexcision SURGEON: Juhi Carbajal M.D. DATE: 01/20/2020 PREOPERATIVE DIAGNOSIS: Lobular breast cancer POSTOPERATIVE DIAGNOSIS: Lobular breast cancer HISTORY: Patient who initially presented with a large mass in the upper inner quadrant of her left breast. This was lobular cancer by biopsy. She underwent neoadjuvant therapy with impressive clinical response and resolution of the palpable mass. She underwent needle localized excisional breast biopsy and sentinel lymph node biopsy, but was found to have isolated cells and clumps of lobular cancer scattered throughout the biopsy, with cancer cells seen at the inferior margin. Reexcision was recommended. FINDINGS: No palpable mass, but dense tissue especially inferiorly and medially. PROCEDURE IN DETAIL: After informed consent was obtained and appropriate preoperative antibiotics were administered the patient was taken to the operating room she was placed in the supine position and anesthesia was administered. She was prepped and draped in the standard sterile fashion and the left upper inner breast incision was reopened. Dissection was carried down to the biopsy cavity which was opened and drained. The entire biopsy cavity was then reexcised with a generous portion of the inferior margin taken. The specimen was oriented for pathology with a long medial, short superior, and loop superficial suture. The wound was irrigated and hemostasis verified. Additional local anesthesia was infused for postoperative pain control and the subcutaneous tissues reapproximated with a running 3-0 Monocryl suture. Local anesthesia was infused into the biopsy cavity and the skin was closed with 4-0 Monocryl suture. Dermabond dressings were placed and once this was dry a fluff dressing was placed and secured with tape. The patient was extubated and taken to recovery in good condition. Estimated blood loss was minimal. There were no complications. Specimen is left breast reexcision.
== END 2020-01-20 18:08 | disposition home or self-care (01) ==
LOC: SDC 10:35
PROVIDERS: ATTEND Surgery
PROC: 0HBU0ZZ Excision of Left Breast, Open Approach (ICD-10-PCS; principal; 2020-01-20)
DX: C50.212 Malignant neoplasm of upper-inner quadrant of left female breast (principal); I10 Essential (primary) hypertension; E11.40 Type 2 diabetes mellitus with diabetic neuropathy, unspecified; Z79.02 Long term (current) use of antithrombotics/antiplatelets; Z79.82 Long term (current) use of aspirin; Z79.84 Long term (current) use of oral hypoglycemic drugs; Z79.899 Other long term (current) drug therapy
CPT/HCPCS: 88307; 88341; 88342; J0360; J0690; J1100; J1885; J2001; J2250; J2405; J2704; J3010; S0020

== ENCOUNTER → 2020-03-15 | Day surgery (SDC) | payer OTHER ==
[2020-03-16 14:15] LABS: SARS-CoV-2 MS2 Positive; SARS-CoV-2 N Gene Negative; SARS-CoV-2 S Gene Negative; SARS-CoV-2 by NAA Not Detected (NotDetected); SARS-CoV-2 orf1ab Negative
== END ==
LOC: LABBT 06:52
PROVIDERS: ATTEND Surgery
DX: Z01.812 Encounter for preprocedural laboratory examination (principal); Z11.59 Encounter for screening for other viral diseases; C50.919 Malignant neoplasm of unspecified site of unspecified female breast
CPT/HCPCS: 87635; U0003